=== PATIENT | female | born 1985 | race Two or more races ===

== ENCOUNTER 2016-12-08 01:53 | Emergency (ER) | payer MEDICAID, OTHER ==
[~2016-12-08] VITALS: Ht 167.6 cm; Wt 56.7 kg
--- NOTE | 2016-12-08 01:55 | NUR ---
To bed 31 yo female bibra with c/o etoh intoxication and possible ambien and toradol overdose per ems. Received patient in er alert, nondirectable, aggressive, kicking. Reorientation done, safety measures initiated. Patent airway maintained. Dr Smith at bedside for eval.
--- NOTE | 2016-12-08 01:55 | NUR ---
IM Haldol 5mg given on the left deltoids, Benadry 12.5mg IM given on the anterolateral thigh per Dr Smith's verbal order. Cardiac monitoring ongoing. Safety measures in place.
--- NOTE | 2016-12-08 01:56 | NUR ---
Noted with dried blood on the right nare, no acute trauma noted upon visualization.
[2016-12-08] MEDS ORDERED: diphenhydrAMINE HCL 50 MG/ML VIAL ONE (02:02)
[2016-12-08] MEDS ORDERED: HALOPERIDOL LACTATE INJ 5 MG/ML VIAL ONE (02:02)
[2016-12-08] MEDS ORDERED: IV SET PRIMARY 1 EA INFUS.SET MC ONE ×2 (02:03→03:06)
[2016-12-08] MEDS ORDERED: IV SET PRIMARY PUMP SET 1 EA INFUS.SET MC ONE ×2 (02:03→03:06)
[2016-12-08] MEDS ORDERED: IV NS 0.9% 1,000 ML ONE (02:03)
--- NOTE | 2016-12-08 02:10 | NUR ---
started a saline lock on the lac g20, blood drawn and sent to lab.
[2016-12-08] MEDS: IV NS 0.9% 1,000 ML BAG IV ONE (02:13)
[2016-12-08] MEDS: HALOPERIDOL LACTATE INJ 5 MG/ML VIAL IM ONE (02:14)
[2016-12-08] MEDS: diphenhydrAMINE HCL 50 MG/ML VIAL IM ONE (02:14)
--- NOTE | 2016-12-08 02:16 | NUR ---
technical customer support specialist at bedside.
[2016-12-08 02:40] LABS: BASOPHILS % (AUTO) 0.4 % (0.0-2.0); EOSINOPHILS # (AUTO) 0.1 /CMM (0.0-0.7); HEMATOCRIT 42 % (33-45); HEMOGLOBIN 14.2 g/dL (11.5-14.8); LYMPHOCYTES # (AUTO) 3.5 /CMM (0.8-4.8); LYMPHOCYTES % (AUTO) 40.4 % (20.0-44.0); MEAN CORPUSCULAR HEMOGLOBIN 31 PG (26.0-33.0); MEAN CORPUSCULAR HGB CONC 34 g/dl (31.0-36.0); MEAN CORPUSCULAR VOLUME 92 fL (82-100); MONOCYTES # (AUTO) 0.5 /CMM (0.1-1.30); MONOCYTES % (AUTO) 5.7 % (2.0-12.0); NEUTROPHILS # (AUTO) 4.6 /CMM (1.8-8.9); NEUTROPHILS % (AUTO) 52.5 % (43.0-81.0); PLATELET COUNT (AUTO) 269 /CMM (150-450); RED BLOOD CELL COUNT(AUTO) 4.52 MIL/uL (4.0-5.2); WHITE BLOOD COUNT (AUTO) 8.7 K/uL (4.3-11.0)
--- NOTE | 2016-12-08 02:47 | NUR ---
urine collected aseptically via in-out catheter per Dr Smith's verbal order and sent to lab. Drained approximately 250cc of clear yellow urine.
[2016-12-08 03:02] LABS: ALBUMIN 4.1 g/dL (3.4-5.0); BILIRUBIN,TOTAL 0.2 mg/dL (0.2-1.0); CALCIUM, SERUM 8.8 mg/dL (8.5-10.1); CREATININE 0.8 mg/dL (0.6-1.3); SALICYLATE 2.9 mg/dL (2.8-20.0); TOTAL PROTEIN, SERUM 7.4 g/dL (6.4-8.2)
--- NOTE | 2016-12-08 03:16 | NUR ---
second of NS IV 1L bolus started on the lac g20 per Dr Smith's verbal order for BP of 89/44.
[2016-12-08 03:18] LABS: BILIRUBIN,URINE NEGATIVE (NEGATIVE); BLOOD, URINE NEGATIVE Ery/uL (NEGATIVE); KETONES,URINE NEGATIVE (NEGATIVE); LEUKOCYTE ESTERASE ,URINE NEGATIVE (NEGATIVE); NITRITE, URINE NEGATIVE (NEGATIVE); PROTEIN,URINE NEGATIVE (NEGATIVE); UGLUCOSE NEGATIVE (NEGATIVE); UROBILINOGEN,URINE 0.2 EU/dL (0.2)
[2016-12-08 03:19] LABS: APPEARANCE,URINE CLEAR (CLEAR); COLOR,URINE STRAW (YELLOW)
[2016-12-08 03:37] LABS: CANNABINOID, URINE NEGATIVE (NEGATIVE); PHENCYCLIDINE SCREEN,URINE NEGATIVE (NEGATIVE)
--- NOTE | 2016-12-08 04:59 | NUR ---
[facility] called for transport eta 30 min.
--- NOTE | 2016-12-08 05:32 | NUR ---
[facility], vss, patient is drowsy yet responsive to verbal and tactile stimuli.
--- NOTE | 2016-12-08 06:20 | NUR ---
Patient back from ct, no incident noted, VSS.
--- NOTE | 2016-12-08 07:13 | NUR ---
Report given to Jack GR for faisal.
--- NOTE | 2016-12-08 07:15 | NUR ---
RECEIVED REPORT FROM BRIAN GR
--- NOTE | 2016-12-08 09:23 | NUR ---
IV removed. Catheter intact and site benign. Pressure and 4x4 applied to site. No bleeding noted.Patient discharged to home in stable condition. Written and verbal after care instructions given. Patient verbalizes understanding of instruction. ambulatory with a steady gait. picked up by friend.
[2016-12-08 09:26] VITALS: BP 127/73
== END 2016-12-08 09:27 | disposition home or self-care (01) ==
LOC: ER 01:55
DX: F10.129 Alcohol abuse with intoxication, unspecified (principal); R41.82 Altered mental status, unspecified
CPT/HCPCS: 36415; 70450; 80048; 80076; 80305; 80329; 81001; 84703; 85025; 93005; 96360; 96372 ×2; 99285; A4606; G0480 ×2; J1200; J1630; J7030; Z7610; 81000-TC; G6039-TC

== ENCOUNTER 2017-06-08 22:54 | Emergency (ER) | payer OTHER ==
[~2017-06-08] VITALS: Ht 162.6 cm; Wt 53.5 kg
--- NOTE | 2017-06-08 23:00 | NUR ---
BIB [employer] IN CUSTODY FOR OTB, PT C/O L INDEX SWELLING AND PAIN. PT AOX3 RR EVEN AND UNLABORED. NO SOB NOTED. NAD NOTED. NO NVD AT THIS TIME. PT NOT DIAPHORETIC. BASKET MACHINE OPERATOR KEERTHI AT BEDSIDE FOR EVAL. [employer] AT BEDSIDE
--- NOTE | 2017-06-08 23:18 | NUR ---
RADIOLOGY AT BEDSIDE FOR FINGER XR
--- NOTE | 2017-06-09 00:15 | NUR ---
EMILY PENDLETON SPEAKING TO PT REGARDING RESULTS.
--- NOTE | 2017-06-09 00:25 | NUR ---
Patient discharged home in stable condition under [employer] custody. Written and verbal after care instructions given. Patient verbalizes understanding of instruction. ambulatory with a steady gait.
[2017-06-09 00:27] VITALS: BP 128/68
== END 2017-06-09 00:27 ==
LOC: ER 22:57
DX: S62.611A Displaced fracture of proximal phalanx of left index finger, initial encounter for closed fracture (principal); E11.9 Type 2 diabetes mellitus without complications; G40.909 Epilepsy, unspecified, not intractable, without status epilepticus; V43.52XA Car driver injured in collision with other type car in traffic accident, initial encounter; Y93.89 Activity, other specified; Y92.89 Other specified places as the place of occurrence of the external cause; Y99.9 Unspecified external cause status
CPT/HCPCS: 29125; 73130; 99284; A4606; Z7610